=== PATIENT | female | born 1935 | race Two or more races ===

== ENCOUNTER 2020-02-17 11:07 | Inpatient (IN) | payer MEDICARE ==
[~2020-02-17] VITALS: Ht 152.4 cm; Wt 85.2 kg
[2020-02-17 11:50] LABS: BASOPHILS % (AUTO) 0.5 % (0.0-5.0); EOSINOPHILS % (AUTO) 2.2 % (0.0-8.0); HEMATOCRIT 26.5 % (36-48); LYMPHOCYTES % (AUTO) 14.2 % (21.0-51.0); MEAN CORPUSCULAR HEMOGLOBIN 31.7 pg (27.0-33.0); MEAN CORPUSCULAR HGB CONC 33.2 g/dL (32.0-36.0); MEAN CORPUSCULAR VOLUME 95.3 fL (79-99); MONOCYTES % (AUTO) 11.1 % (3.0-13.0); NEUTROPHILS % (AUTO) 71.6 % (40.0-77.0); PLATELET COUNT (AUTO) 150 K/uL (130-400); RED BLOOD CELL COUNT(AUTO) 2.78 MIL/uL (4.00-5.50); RED CELL DISTRIBUTION WIDTH 16.7 % (11.0-15.5); WHITE BLOOD COUNT (AUTO) 7.4 K/uL (4.8-10.8)
[2020-02-17 11:56] LABS: INR 1.24 (0.85-1.15); PARTIAL THROMBOPLASTIN TIME 31.1 SEC (26.3-35.5); PROTHROMBIN TIME 13.3 SEC (9.6-11.6)
[2020-02-17 12:07] LABS: BILIRUBIN,TOTAL 0.6 mg/dL (0.2-1.0); CREATININE 3.6 mg/dL (0.5-1.5); POTASSIUM 3.7 mmol/L (3.5-5.1); TOTAL PROTEIN, SERUM 7.1 g/dL (6.0-8.3)
[2020-02-17 12:09] LABS: B-TYPE NATRIURETIC PEPTIDE 674 pg/mL (0-100)
[2020-02-17] MEDS ORDERED: FUROSEMIDE 10 MG/ML 2ML VIAL ONE (13:41)
[2020-02-17] MEDS ORDERED: LEVOFLOXACIN 500 MG/D5W 100 ML 100 ML ONE (13:46)
[2020-02-17] MEDS ORDERED: GUAIFENESIN-DM 200/20 MG 10 ML PO PRN (14:30)
[2020-02-17] MEDS ORDERED: ONDANSETRON HCL 4 MG/2 ML VIAL IV PRN (14:30)
[2020-02-17] MEDS ORDERED: NITROGLYCERIN 0.4 MG SL TAB SL PRN (14:30)
[2020-02-17] MEDS ORDERED: ACETAMINOPHEN 325 MG TAB PO PRN (14:30)
[2020-02-17] MEDS ORDERED: LACTULOSE 20 GM/30 ML UDCUP PO PRN (14:30)
[2020-02-17] MEDS ORDERED: PHARMACY COMMUNICATION MISC SCH (15:30)
[2020-02-17 16:29] VITALS: BP 117/41
--- NOTE | 2020-02-17 17:35 | NUR ---
DR. SANTAMARIA AWARE OF CASE ACUTE RF, OKAY TO PUT ON HIS LIST.
--- NOTE | 2020-02-17 17:35 | NUR ---
DR MCKOY CARDIO AWARE OF CASE STATES AGREES WITH DR. Mckinnon TO TRANSFER TO PCU. AND ORDER 2D ECHO.
--- NOTE | 2020-02-17 17:39 | NUR ---
DR. MATEO RAMOS AWARE OF CASE NOTIFIED BY DR. KEVIN.
--- NOTE | 2020-02-17 18:17 | NUR ---
SPOKE WITH DR. FONTANA TRANSFER TO [facility] ORDER ABG D/T SOB.
[2020-02-17] MEDS ORDERED: GLUCAGON 1MG KIT 1 MG ML IM PRN (18:30)
[2020-02-17 18:38] LABS: ABG BASE EXCESS 6.5 mmol/L (-2.0-3.0); ABG HCO3 33.4 mmol/L (21.0-28.0); ABG OXYGEN SATURATION 96.1 % (95.0-99.0); ABG PCO2 57 mmHg (32-45)
[2020-02-17] MEDS ORDERED: METO2.5T2 PO (19:00)
[2020-02-17] MEDS ORDERED: POTA20TA82 PO (19:00)
[2020-02-17] MEDS ORDERED: ATOR20TA65 PO (19:00)
[2020-02-17] MEDS ORDERED: AMLO-257 PO (19:00)
[2020-02-17] MEDS ORDERED: CLOP75TA32 PO (19:00)
[2020-02-17] MEDS ORDERED: INSU300I SQ (19:00)
[2020-02-17] MEDS ORDERED: FENO145T26 PO (19:00)
[2020-02-17] MEDS ORDERED: ISOS30TA6 PO (19:00)
[2020-02-17] MEDS ORDERED: CARV6.25 PO (19:00)
[2020-02-17] MEDS ORDERED: DOXY100C2 PO (19:00)
[2020-02-17] MEDS ORDERED: TORS20TA4 PO (19:00)
--- NOTE | 2020-02-17 19:51 | NUR ---
REPORT GIVEN TO TRI TELLEZ PT IN NO DISTRESS, STATES FEELS BAD, 02 SATS AT 96 ON 3L. MA.
[2020-02-17 20:01] VITALS: BP 117/37
[2020-02-17 23:30] VITALS: BP 107/54
[2020-02-18] VITALS (18 sets, daily range): BP systolic 103–147; BP diastolic 40–82
[2020-02-18 03:39] LABS: BASOPHILS % (AUTO) 0.3 % (0.0-5.0); EOSINOPHILS % (AUTO) 0.1 % (0.0-8.0); HEMATOCRIT 28.6 % (36-48); LYMPHOCYTES % (AUTO) 11.7 % (21.0-51.0); MEAN CORPUSCULAR HEMOGLOBIN 30.5 pg (27.0-33.0); MEAN CORPUSCULAR HGB CONC 31.8 g/dL (32.0-36.0); MONOCYTES % (AUTO) 4.6 % (3.0-13.0); PLATELET COUNT (AUTO) 149 K/uL (130-400); RED BLOOD CELL COUNT(AUTO) 2.98 MIL/uL (4.00-5.50); RED CELL DISTRIBUTION WIDTH 16.3 % (11.0-15.5); WHITE BLOOD COUNT (AUTO) 6.8 K/uL (4.8-10.8)
[2020-02-18 04:00] LABS: ALBUMIN 2.9 g/dL (3.5-5.0); BILIRUBIN,TOTAL 0.9 mg/dL (0.2-1.0); CREATININE 3.6 mg/dL (0.5-1.5); CRP QUANTITATIVE 7.3 mg/L (0.00-9.0); MAGNESIUM 2.7 mg/dL (1.80-2.40); PHOSPHORUS 6.3 mg/dL (2.5-4.9); POTASSIUM 3.8 mmol/L (3.5-5.1); TOTAL PROTEIN, SERUM 7.2 g/dL (6.0-8.3); URIC ACID 13.2 mg/dL (2.6-7.2)
[2020-02-18 04:11] LABS: B-TYPE NATRIURETIC PEPTIDE 691 pg/mL (0-100)
--- NOTE | 2020-02-18 07:30 | NUR ---
INITIAL ASSESSMENT PATIENT RESTING IN BED WITH EYES CLOSED. 02 SATURATION 93-94% ON 3L ER NC. PATIENT APPEARS WEAK, BUT ABLE TO OPEN EYES WHEN SPOKEN TO. I ASK PATIENT TO SQUEEZE MY HAND TO ASSESS STRENGTH. 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 PATIENT ABLE TO RESPOND TO MY VERBAL COMMANDS. SEVERE BLE WEAKNESS NOTED. BILATERAL PUPILS 2, SLUGGISH RESPONSE. WILL CONTINUE TO MONITOR.
--- NOTE | 2020-02-18 08:10 | NUR ---
CARDIOLOGY PA BRENDA GRANT FOR DR. Yash VINSON AT THIS TIME. INFORMED HIM OF CONSULT PLACED YESTERDAY. BRENDA MITCHELL ASKED TO SPEAK TO MD WHO ORDERED CONSULT. DR. SHADE MCKINLEY WAS ORDERING MD SO I CALLED MD AND TRANSFERRED CALL TO BRENDA GRANT.
--- NOTE | 2020-02-18 08:25 | NUR ---
CHANGE NOTED LOC PATIENT NOT ABLE TO RESPOND TO VERBAL OR SHAKING COMMAND. PATIENT UNABLE TO LIFT HER HANDS OR OPEN EYES. ASSESSED PUPILS AND NOTED BOTH TO BE CONSTRICTED AND NOT REACTIVE TO CALLED. PAGED HOSPITALIST TO REPORT CHANGE TO LOC.
--- NOTE | 2020-02-18 08:30 | NUR ---
PATIENT LETHARGIC, O2 SAT 68% ON O2 AT 3L NC. WASHHOUSE WORKER READING SB HR 45. RAPID RESPONSE ACTIVATED. (REFER TO RAPID RESPONSE DOCUMENTATION). MICKEY, TRI PRIMARY NURSE, Artis PEREZ RNELECTROPHYSIOLOGY TECH AT BEDSIDE.
--- NOTE | 2020-02-18 08:40 | NUR ---
PLACED ON 100% NON-REBREATHER MASK.
--- NOTE | 2020-02-18 08:42 | NUR ---
DR. MCKINLEY AT BEDSIDE. ABG'S DRAWN, 12 LEAD EKG DONE.
--- NOTE | 2020-02-18 08:45 | NUR ---
DR. Artis GALINDO MD INFORMED OF PATIENT STATUS. PLACED ORDERS TO PLACED PATIENT ON BIPAP. INFORMED RT WHO WAS IN PATIENT ROOM AT THIS TIME.
[2020-02-18 08:46] LABS: ABG BASE EXCESS 6.3 mmol/L (-2.0-3.0); ABG HCO3 34.6 mmol/L (21.0-28.0); ABG OXYGEN SATURATION 99.3 % (95.0-99.0); ABG PCO2 73 mmHg (32-45)
[2020-02-18 08:57] LABS: HEMATOCRIT 28.7 % (36-48); MEAN CORPUSCULAR HEMOGLOBIN 30.7 pg (27.0-33.0); MEAN CORPUSCULAR HGB CONC 31.7 g/dL (32.0-36.0); PLATELET COUNT (AUTO) 152 K/uL (130-400); RED BLOOD CELL COUNT(AUTO) 2.96 MIL/uL (4.00-5.50); RED CELL DISTRIBUTION WIDTH 16.4 % (11.0-15.5); WHITE BLOOD COUNT (AUTO) 6.6 K/uL (4.8-10.8)
[2020-02-18] MEDS: FAMOTIDINE 20MG TAB 20 MG TAB PO SCH (09:00)
[2020-02-18] MEDS: Vitamin B Complex/Vit C/Folic Acid PO SCH (09:00)
[2020-02-18] MEDS ORDERED: HEPARIN SODIUM 5000UNIT/ML 1ML VIAL SQ SCH (09:00)
--- NOTE | 2020-02-18 09:00 | NUR ---
PLACED ON BIPAP 18/6 40% FIO2 RR22. O2 SAT 100%, SINUS LISA HR 55. PATIENT RESPONDS TO PAINFUL STIMULI AND OPENS EYES, NON VERBAL AT THIS TIME.
[2020-02-18 09:07] LABS: CREATININE 3.6 mg/dL (0.5-1.5); POTASSIUM 3.9 mmol/L (3.5-5.1)
--- NOTE | 2020-02-18 09:10 | NUR ---
FAMILY NOTIFIED CALLED PERSON LISTED NEXT OF KIN AND PERSON TO NOTIFY, PRECIOUS DORAN [phone], AND UPDATED ON PATIENT CURRENT STATUS AND THAT PATIENT WOULD BE TRANSFERRED TO ICU. Addendum: 02/18/20 at 1420 by MICKEY MANNING RN RN PRECIOUS DORAN ALSO REPORTED TO ME AT THIS TIME THAT PATIENTS MOLECULAR BIOLOGY DIRECTOR IS DR. FERRO
--- NOTE | 2020-02-18 09:15 | NUR ---
PORTABLE CHEST X-RAY DONE.
--- NOTE | 2020-02-18 09:20 | NUR ---
PLACED 16 FR MÁRQUEZ CATHETER, 600CC CLEAR URINE OUTPUT NOTED. PATIENT CONTINUE TO RESPOND TO PAINFUL STIMULI. O2 SAT 100%, SINUS LISA HR 53. ORDERS TO TRANSFER TO ICU. Artis PEREZ RNASH HANDLER AWARE.
[2020-02-18] MEDS: HEPARIN SODIUM 5000UNIT/ML 1ML VIAL SQ SCH ×2 (09:31→21:07)
[2020-02-18 09:38] LABS: LYMPHOCYTES % (MANUAL) 7 % (22-44); MONOCYTES % (MANUAL) 6 % (2-9); REACTIVE LYMPHOCYTES 2 % (0-0); SEGMENTED NEUTROPHILS % 85 % (40-70)
[2020-02-18 09:39] LABS: PLATELET MORPHOLOGY COMMENT ADEQUATE
[2020-02-18 10:02] LABS: ABG BASE EXCESS 6.9 mmol/L (-2.0-3.0); ABG HCO3 32.3 mmol/L (21.0-28.0); ABG OXYGEN SATURATION 98.3 % (95.0-99.0); ABG PCO2 49 mmHg (32-45)
--- NOTE | 2020-02-18 10:35 | NUR ---
TAKEN TO CT CHEST AND HEAD.
--- NOTE | 2020-02-18 11:03 | NUR ---
TRANSFERRED TO 1ST FLOOR ICU ROOM 3, PATIENT AWAKE, ALERT AND STATES SHE DOES NOT REMEMBER WHAT HAPPENED EARLIER. REORIENTED TO EVENTS.
--- NOTE | 2020-02-18 11:20 | NUR ---
REPORTED OFF TO TRI HONG.
[2020-02-18] MEDS: FUROSEMIDE 10 MG/ML 4ML VIAL IV SCH (13:55)
[2020-02-18] MEDS: ISOSORBIDE MONO 30MG TAB SR PO SCH (13:55)
--- NOTE | 2020-02-18 14:15 | NUR ---
REPORT GIVEN TO TRI HONG PATIENT ALREADY IN ICU.
[2020-02-18] MEDS: CEFTRIAXONE SODIUM 1 GM IVP SCH (17:32)
[2020-02-18] MEDS ORDERED: SODIUM CHLORIDE 0.9% 1000ML 1,000 ML IV ONE (17:40)
[2020-02-18] MEDS: AZITHROMYCIN 500MG+NS 250ML 250 ML IV SCH (17:49)
[2020-02-18] MEDS ORDERED: DEXTROSE 50%-WATER 25 GM/50 ML VIAL ONE ×2 (18:08→21:49)
--- NOTE | 2020-02-18 20:00 | NUR ---
ASSESSMENT AWAKE AND FOLLOWS COMMANDS. REMAINS ON BI PAP WITH ORDERED SETTINGS.ASSESSMENT COMPLETED SEE FLOW SHEET.
[2020-02-18] MEDS: ATORVASTATIN CALCIUM 20 MG TABLET PO SCH (21:04)
[2020-02-18] MEDS: DEXTROSE 50%-WATER 50 ML DISP.SYRIN IV PRN (21:51)
[2020-02-19] VITALS (21 sets, daily range): BP systolic 112–137; BP diastolic 24–48
[2020-02-19] MEDS: FUROSEMIDE 10 MG/ML 4ML VIAL IV SCH ×2 (00:24→12:41)
[2020-02-19 03:51] LABS: BASOPHILS % (AUTO) 0.3 % (0.0-5.0); EOSINOPHILS % (AUTO) 0.6 % (0.0-8.0); HEMATOCRIT 27.6 % (36-48); MEAN CORPUSCULAR HEMOGLOBIN 30.6 pg (27.0-33.0); MEAN CORPUSCULAR HGB CONC 32.6 g/dL (32.0-36.0); MEAN CORPUSCULAR VOLUME 93.9 fL (79-99); MONOCYTES % (AUTO) 10.2 % (3.0-13.0); NEUTROPHILS % (AUTO) 74.6 % (40.0-77.0); PLATELET COUNT (AUTO) 154 K/uL (130-400); RED BLOOD CELL COUNT(AUTO) 2.94 MIL/uL (4.00-5.50); RED CELL DISTRIBUTION WIDTH 16.1 % (11.0-15.5); WHITE BLOOD COUNT (AUTO) 7.1 K/uL (4.8-10.8)
[2020-02-19 04:11] LABS: ALBUMIN 2.8 g/dL (3.5-5.0); BILIRUBIN,DIRECT 0.4 mg/dL (0.0-0.3); BILIRUBIN,TOTAL 0.6 mg/dL (0.2-1.0); CREATININE 3.5 mg/dL (0.5-1.5); MAGNESIUM 2.8 mg/dL (1.80-2.40); PHOSPHORUS 6.3 mg/dL (2.5-4.9); POTASSIUM 3.4 mmol/L (3.5-5.1); TOTAL PROTEIN, SERUM 6.9 g/dL (6.0-8.3); URIC ACID 14.1 mg/dL (2.6-7.2)
[2020-02-19] MEDS ORDERED: DEXTROSE 50%-WATER 25 GM/50 ML VIAL ONE ×3 (04:20→09:56)
[2020-02-19] MEDS: DEXTROSE 50%-WATER 50 ML DISP.SYRIN IV PRN ×3 (04:40→09:57)
[2020-02-19] MEDS ORDERED: CLOPIDOGREL BISULFATE 75 MG TAB PO SCH (09:00)
[2020-02-19] MEDS ORDERED: COMPOUND IV MISC 1 EACH IVSOLN MISC PRN (09:15)
[2020-02-19] MEDS: Vitamin B Complex/Vit C/Folic Acid PO SCH (09:21)
[2020-02-19] MEDS: FAMOTIDINE 20MG TAB 20 MG TAB PO SCH (09:21)
[2020-02-19] MEDS: ISOSORBIDE MONO 30MG TAB SR PO SCH (09:21)
[2020-02-19] MEDS: HEPARIN SODIUM 5000UNIT/ML 1ML VIAL SQ SCH ×2 (09:28→20:54)
[2020-02-19] MEDS: IRON SUCROSE COMPLEX 100 MG in SODIUM CHLORIDE 0.9% 50 ML IV SCH (09:37)
[2020-02-19] MEDS: ALLOPURINOL 100 MG TABLET PO SCH ×3 (09:38→20:53)
--- NOTE | 2020-02-19 12:05 | NUR ---
DC PLAN VISITED WITH PATIENT. PATIENT LIVES WITH SISTER. DME AVAILABLE WALKER, WHEEL CHAIR, CANE. [facility] COMES BY 2 WEEK. [place] [facility] [place]. NO SPOUSE HAS 8 CHILDREN. NO POA. ASKED ABOUT DNR/DNI SAID WANTS FULL CODE. KIDS ARE TRYING TO COME DOWN SO THEY CAN GIVE MORAL SUPPORT AND FOR DECISION MAKING. PLAN IS TO RETURN HOME DOES NOT WANT SNF. JEZ FOR [facility] RECEIVED. Addendum: 02/19/20 at 1212 by TO GONZALEZ RN CM Amended: Links added.
[2020-02-19] MEDS: CALCIUM ACETATE 667 MG CAPSULE PO SCH ×2 (12:41→16:24)
--- NOTE | 2020-02-19 13:35 | NUR ---
RD NOTIFICATION Pt admitted with Acute Renal Failure, CHF Exacerbation, Dyspnea. Pt with Full Liquid diet order at time of screen. Poor PO intake at 25%. Noted mild to moderated fluid retention; RLE 2+/BUE 3+ pitting edema, as per EMR. Diuretics in place. Altered Renal labs. Pt in ICU. Obesity Class III (BMI 40.0). Whend medically feasible, Recommend advance diet as tolerated to Heart Healthy, Renal Non Dialysis diet. Recommend 1500mL Fluid Restriction RD to follow up with Nutrition education when Pt is stable and out of ICU Addendum: 02/20/20 at [address] Amended: Links added.
[2020-02-19] MEDS: AZITHROMYCIN 500MG+NS 250ML 250 ML IV SCH (16:23)
[2020-02-19] MEDS: CEFTRIAXONE SODIUM 1 GM IVP SCH (16:24)
[2020-02-19] MEDS: ATORVASTATIN CALCIUM 20 MG TABLET PO SCH (20:52)
[2020-02-20] VITALS (17 sets, daily range): BP systolic 105–151; BP diastolic 35–75
[2020-02-20] MEDS ORDERED: DEXTROSE 50%-WATER 25 GM/50 ML VIAL ONE ×2 (00:35→06:11)
[2020-02-20] MEDS: DEXTROSE 50%-WATER 50 ML DISP.SYRIN IV PRN ×3 (00:36→06:11)
[2020-02-20 04:12] LABS: BASOPHILS % (AUTO) 0.3 % (0.0-5.0); EOSINOPHILS % (AUTO) 1.3 % (0.0-8.0); HEMATOCRIT 28.5 % (36-48); LYMPHOCYTES % (AUTO) 15.8 % (21.0-51.0); MEAN CORPUSCULAR HEMOGLOBIN 30.8 pg (27.0-33.0); MEAN CORPUSCULAR VOLUME 93.4 fL (79-99); MONOCYTES % (AUTO) 12.2 % (3.0-13.0); NEUTROPHILS % (AUTO) 69.9 % (40.0-77.0); PLATELET COUNT (AUTO) 170 K/uL (130-400); RED BLOOD CELL COUNT(AUTO) 3.05 MIL/uL (4.00-5.50); RED CELL DISTRIBUTION WIDTH 16.5 % (11.0-15.5); WHITE BLOOD COUNT (AUTO) 7.5 K/uL (4.8-10.8)
[2020-02-20 04:45] LABS: ALBUMIN 2.7 g/dL (3.5-5.0); BILIRUBIN,TOTAL 0.7 mg/dL (0.2-1.0); CREATININE 3.3 mg/dL (0.5-1.5); PHOSPHORUS 4.9 mg/dL (2.5-4.9); POTASSIUM 3.5 mmol/L (3.5-5.1); TOTAL PROTEIN, SERUM 6.9 g/dL (6.0-8.3)
[2020-02-20] MEDS: ALLOPURINOL 100 MG TABLET PO SCH ×3 (08:37→20:30)
[2020-02-20] MEDS: FAMOTIDINE 20MG TAB 20 MG TAB PO SCH (08:38)
[2020-02-20] MEDS: CALCIUM ACETATE 667 MG CAPSULE PO SCH ×3 (08:38→17:07)
[2020-02-20] MEDS: Vitamin B Complex/Vit C/Folic Acid PO SCH (08:38)
[2020-02-20] MEDS: ISOSORBIDE MONO 30MG TAB SR PO SCH (08:42)
[2020-02-20] MEDS: IRON SUCROSE COMPLEX 100 MG in SODIUM CHLORIDE 0.9% 50 ML IV SCH (08:44)
[2020-02-20] MEDS: HEPARIN SODIUM 5000UNIT/ML 1ML VIAL SQ SCH ×2 (08:49→20:38)
[2020-02-20] MEDS: FUROSEMIDE 10 MG/ML 4ML VIAL IV SCH ×2 (13:07)
[2020-02-20] MEDS: AZITHROMYCIN 500MG+NS 250ML 250 ML IV SCH (15:25)
[2020-02-20] MEDS: CEFTRIAXONE SODIUM 1 GM IVP SCH (15:26)
--- NOTE | 2020-02-20 15:30 | NUR ---
DC PLAN VISITED WITH PATIENT. PATIENT APPEARS MORE AWAKE AND ALERT. ABLE TO MAKE CONVERSATION. SPOKE TO HER REGARDING POA SAID WANTS TO THINK ABOUT IT. ASKED ABOUT SNF. SAID WANTS TO GO HOME. CALLED DAUGHTER [phone] REGARDING DC PLAN. SAID YES WOULD PREFER MOM TO GO HOME. SHE ALREADY HAS 02 TANK AND CONCENTRATOR AT HOME. NOT REALLY GETTING OUT BED. GAVE PERMISSION TO TALK WITH [facility] FOR HOME HEALTH CONTINUATION. PER DAUGHTER SAID THAT DR. ROSA SAID HE WOULD TALK TO THEM TOMORROW ABOUT KIDNEY FUNCTION. THEY ARE STILL TRYING TO DECIDE AND HELP MOM DECIDE BEST PLAN. WILL CALL AGAIN TOMORROW AFTER DR. ROSA TALKS WITH THEM TO SEE WHAT WAS DECIDED. Addendum: 02/20/20 at 1534 by TO GONZALEZ RN CM Amended: Links added.
--- NOTE | 2020-02-20 18:00 | NUR ---
TRANSFERRED PT WITHOUT INCIDENT. PT WITHOUT SHORTNESS OF BREATH OR EXACERBATION VS STABLE
--- NOTE | 2020-02-20 18:30 | NUR ---
TO PCCU SBAR REPORT TO IRAIDA BARTLETT. PT IS ALETRT AWAKE, ORIENTED X 3. NO COMPLAINTS OF PAIN
[2020-02-20] MEDS: ATORVASTATIN CALCIUM 20 MG TABLET PO SCH (20:30)
[2020-02-21] MEDS: FUROSEMIDE 10 MG/ML 4ML VIAL IV SCH ×3 (00:41→20:52)
[2020-02-21 03:39] VITALS: BP 150/80
[2020-02-21 04:33] LABS: BASOPHILS % (AUTO) 0.7 % (0.0-5.0); EOSINOPHILS % (AUTO) 1.7 % (0.0-8.0); HEMATOCRIT 29.1 % (36-48); LYMPHOCYTES % (AUTO) 16.4 % (21.0-51.0); MEAN CORPUSCULAR HEMOGLOBIN 30.9 pg (27.0-33.0); MEAN CORPUSCULAR HGB CONC 32.3 g/dL (32.0-36.0); MEAN CORPUSCULAR VOLUME 95.7 fL (79-99); NEUTROPHILS % (AUTO) 67.7 % (40.0-77.0); PLATELET COUNT (AUTO) 153 K/uL (130-400); RED BLOOD CELL COUNT(AUTO) 3.04 MIL/uL (4.00-5.50); RED CELL DISTRIBUTION WIDTH 16.5 % (11.0-15.5); WHITE BLOOD COUNT (AUTO) 7.4 K/uL (4.8-10.8)
[2020-02-21 04:49] LABS: INR 1.28 (0.85-1.15); PARTIAL THROMBOPLASTIN TIME 37.9 SEC (26.3-35.5); PROTHROMBIN TIME 13.7 SEC (9.6-11.6)
[2020-02-21 04:58] LABS: ALBUMIN 2.9 g/dL (3.5-5.0); BILIRUBIN,TOTAL 0.8 mg/dL (0.2-1.0); CREATININE 3.4 mg/dL (0.5-1.5); MAGNESIUM 2.4 mg/dL (1.80-2.40); PHOSPHORUS 3.9 mg/dL (2.5-4.9); POTASSIUM 3.2 mmol/L (3.5-5.1); TOTAL PROTEIN, SERUM 7.1 g/dL (6.0-8.3)
[2020-02-21 08:19] VITALS: BP 162/49
[2020-02-21] MEDS: AZITHROMYCIN 500MG+NS 250ML 250 ML IV SCH (09:58)
[2020-02-21] MEDS: HEPARIN SODIUM 5000UNIT/ML 1ML VIAL SQ SCH ×2 (09:58→20:53)
[2020-02-21] MEDS: SENNOSIDES 8.6 MG TABLET PO SCH (09:59)
[2020-02-21] MEDS: ALLOPURINOL 100 MG TABLET PO SCH ×3 (09:59→20:52)
[2020-02-21] MEDS: Vitamin B Complex/Vit C/Folic Acid PO SCH (09:59)
[2020-02-21] MEDS: FAMOTIDINE 20MG TAB 20 MG TAB PO SCH (09:59)
[2020-02-21] MEDS: ISOSORBIDE MONO 30MG TAB SR PO SCH (10:00)
[2020-02-21] MEDS: CALCIUM ACETATE 667 MG CAPSULE PO SCH ×3 (10:05→16:57)
[2020-02-21] MEDS: CEFTRIAXONE SODIUM 1 GM IVP SCH (10:05)
[2020-02-21] MEDS: IRON SUCROSE COMPLEX 100 MG in SODIUM CHLORIDE 0.9% 50 ML IV SCH (10:05)
[2020-02-21 12:15] VITALS: BP 157/46
--- NOTE | 2020-02-21 15:45 | NUR ---
CM NOTE/DECLINED SNF AND DIALYSIS PER EDD BARTLETT, DR. Yash ROSA SPOKE TO FAMILY REGARDING POSSIBLE DIALYSIS, FAMILY AND PATIENT DECLINED. PATIENT AND FAMILY DECLINED SNF RECOMMENDATIONS. DR. PICHARDO INFORMED OF DECLINING OF DIALYSIS. DCP HOME VIA EMS.
[2020-02-21 16:04] VITALS: BP 153/60
[2020-02-21] MEDS: INSULIN HUMULIN R 100 UNIT/ML 3ML SQ SCH ×2 (16:54→20:54)
[2020-02-21 20:05] VITALS: BP 175/62
[2020-02-21] MEDS: ATORVASTATIN CALCIUM 20 MG TABLET PO SCH (20:52)
[2020-02-21 23:52] VITALS: BP 152/59
[2020-02-22 03:49] VITALS: BP 131/54
[2020-02-22] MEDS: INSULIN HUMULIN R 100 UNIT/ML 3ML SQ SCH ×2 (05:44→10:33)
[2020-02-22] MEDS: DEXTROSE 50%-WATER 50 ML DISP.SYRIN IV PRN (05:44)
[2020-02-22] MEDS: HEPARIN SODIUM 5000UNIT/ML 1ML VIAL SQ SCH (08:01)
[2020-02-22] MEDS: FAMOTIDINE 20MG TAB 20 MG TAB PO SCH (08:03)
[2020-02-22] MEDS: SENNOSIDES 8.6 MG TABLET PO SCH (08:03)
[2020-02-22] MEDS: CALCIUM ACETATE 667 MG CAPSULE PO SCH ×2 (08:03→11:36)
[2020-02-22] MEDS: Vitamin B Complex/Vit C/Folic Acid PO SCH (08:03)
[2020-02-22] MEDS: ISOSORBIDE MONO 30MG TAB SR PO SCH (08:03)
[2020-02-22] MEDS: CEFTRIAXONE SODIUM 1 GM IVP SCH (08:04)
[2020-02-22] MEDS: IRON SUCROSE COMPLEX 100 MG in SODIUM CHLORIDE 0.9% 50 ML IV SCH (08:05)
[2020-02-22] MEDS: AZITHROMYCIN 500MG+NS 250ML 250 ML IV SCH (08:05)
[2020-02-22] MEDS: ALLOPURINOL 100 MG TABLET PO SCH ×2 (08:10→13:59)
[2020-02-22] MEDS: FUROSEMIDE 10 MG/ML 4ML VIAL IV SCH (08:10)
[2020-02-22 09:00] VITALS: BP 152/66
[2020-02-22] MEDS ORDERED: CARVEDILOL 6.25 MG TABLET PO SCH ×2 (09:45→14:00)
[2020-02-22] MEDS ORDERED: TORS20TA4 PO (10:21)
--- NOTE | 2020-02-22 10:22 | NUR ---
[facility] Cookie contacted by CM, family requesting home with hospice for pt. Sw called daughter An Verdin, . Daughter states she is in [place] and has not seen pt since arrival. Daughter extremely emotional with news of condition and poor prognosis. Sw provided emotional support and offered to make arrangements for daughter to be allowed to come in visit pt. Daughter declined at this time, wants pt to come home jose antonio. Pt has services with [facility] and daughter would like for them to provide hospice as well. Daughter gave consent for referral to be made and wants dc today. Cookie left message for Vern at [facility]. Pt info faxed to office. Waiting for acceptance
--- NOTE | 2020-02-22 11:40 | NUR ---
DCP: HOME WITH [facility] Sw recd call from Vern [phone] at [facility]. Per Vern, pt has all DME in home and daughter is refusing to sign OOHDNR at this time. Hospice will work with family on OOHDNR after dc. Hospice is ready for pt to be discharged. YESSY informed
[2020-02-22 12:08] VITALS: BP 142/72
--- NOTE | 2020-02-22 13:00 | NUR ---
CM NOTE/[facility] HOME VIA EMS EMS SET UP FOR NON EMERGENCY TRANSFER TO HOME WITH [facility]. PRIMARY NURSE, EDD BARTLETT, MADE AWARE.
--- NOTE | 2020-02-22 13:39 | NUR ---
DISCHARGE TELEPHONE REPORT GIVEN TO MAGED SCHMIDT @ [facility].
--- NOTE | 2020-02-22 13:48 | NUR ---
[facility]CHARGE [facility] CALLED TO REQUEST TRANSPORT HOME.
--- NOTE | 2020-02-22 15:05 | NUR ---
DISCHARGE EMS HERE TO TAKE PT HOME. PERSONAL BELONGINGS TAKEN W/PT.
[2020-02-22 16:00] VITALS: BP 91/55
== END 2020-02-22 15:05 | disposition hospice, home (50) | DRG 291 ==
LOC: EDH 11:07 → EDHIP 14:17 → 3BH 16:23 → 4AH 19:16 → DAHIP 02-18 11:05 → 4DH 02-20 18:00
PROVIDERS: ADMIT Hospitalist; ATTEND Hospitalist
PROC: 5A09357 Assistance with Respiratory Ventilation, Less than 24 Consecutive Hours, Continuous Positive Airway Pressure (ICD-10-PCS; principal; 2020-02-18)
PROC: 5A09357 Assistance with Respiratory Ventilation, Less than 24 Consecutive Hours, Continuous Positive Airway Pressure (ICD-10-PCS; 2020-02-20)
PROC: 5A09357 Assistance with Respiratory Ventilation, Less than 24 Consecutive Hours, Continuous Positive Airway Pressure (ICD-10-PCS; 2020-02-22)
DX: I13.2 Hypertensive heart and chronic kidney disease with heart failure and with stage 5 chronic kidney disease, or end stage renal disease (principal); J96.02 Acute respiratory failure with hypercapnia; G93.41 Metabolic encephalopathy; J96.01 Acute respiratory failure with hypoxia; N18.6 End stage renal disease; I50.43 Acute on chronic combined systolic (congestive) and diastolic (congestive) heart failure; E44.0 Moderate protein-calorie malnutrition; N17.9 Acute kidney failure, unspecified; D64.9 Anemia, unspecified; I25.10 Atherosclerotic heart disease of native coronary artery without angina pectoris; E66.01 Morbid (severe) obesity due to excess calories; E78.5 Hyperlipidemia, unspecified; I25.5 Ischemic cardiomyopathy; E11.51 Type 2 diabetes mellitus with diabetic peripheral angiopathy without gangrene; E11.22 Type 2 diabetes mellitus with diabetic chronic kidney disease; Z74.01 Bed confinement status; Z79.4 Long term (current) use of insulin; Z87.01 Personal history of pneumonia (recurrent); Z91.15 Patient's noncompliance with renal dialysis; Z95.1 Presence of aortocoronary bypass graft; Z99.2 Dependence on renal dialysis; Z68.36 Body mass index [BMI] 36.0-36.9, adult; I25.2 Old myocardial infarction
CPT/HCPCS: 36415; 36600; 70450; 71045; 71250; 76770; 80048; 80053; 80061; 80076; 82435; 82550; 82728; 82803; 82947; 82948; 83540; 83550; 83605; 83735; 83880; 84100; 84132; 84145; 84295; 84484; 84550; 85018; 85025; 85610; 85730; 86140; 86738; 87449; 87899; 93005; 93306; 93356; 94660; 97039; 99291; A4344; G0378; J0456; J0696; J1644; J1756; J1815; J1940; J1956; J2405; J7030; J7070